=== PATIENT | female | born 1980 | race Caucasian/White ===

== ENCOUNTER 2018-04-26 18:53 | Emergency (ER) | payer OTHER ==
[~2018-04-26] VITALS: Ht 149.9 cm; Wt 74.4 kg
[2018-04-26 19:08] VITALS: BP 115/70
--- NOTE | 2018-04-26 19:16 | NUR ---
PATIENT AMBULATED TO BED 6. REPORT GIVEN TO KAYLEN RICHARDS.
--- NOTE | 2018-04-26 19:20 | NUR ---
PT C/O RT FLANK PAIN AND RT LOWER LEG PAIN X3 DAYS. PT DENIES TRAUMA TO AREA. NO BRUISING OR REDNESS NOTED. PT STATES HER URINE WAS "CLOUDY" THIS AM AND THAT THERE IS NO PAIN ON URINATION BUT IT "FEELS WEIRD". PMH HIGH CHOLESTEROL, DM
--- NOTE | 2018-04-26 21:16 | NUR ---
Dr. Shepherd evaluating patient at bedside.
--- NOTE | 2018-04-26 21:27 | NUR ---
PENDING D/C PAPERWORK FROM DR OSORIO.
--- NOTE | 2018-04-26 21:40 | NUR ---
Patient discharged with v/s stable. Written and verbal after care instructions given and explained. Patient alert, oriented and verbalized understanding of instructions. Ambulatory with steady gait. All questions addressed prior to discharge. ID band removed. Patient advised to follow up with PMD. Rx of IBU given. Patient educated on indication of medication including possible reaction and side effects. Opportunity to ask questions provided and answered.
[2018-04-26 21:41] VITALS: BP 111/65
== END 2018-04-26 21:40 | disposition home or self-care (01) ==
LOC: MED 18:53
DX: M79.661 Pain in right lower leg (principal); M54.5 Low back pain; E11.9 Type 2 diabetes mellitus without complications
CPT/HCPCS: 81002; 81025; 99282

== ENCOUNTER 2024-04-14 23:17 | Emergency (ER) | payer OTHER ==
[~2024-04-14] VITALS: Ht 149.9 cm; Wt 68.0 kg
[2024-04-14 23:21] VITALS: BP 131/76; PULSE 80; RESP 16; TEMP 98; O2SAT 97
[2024-04-15 00:10] LABS: BASOPHILS # (AUTO) 0.1 K/uL (0.00-0.22); BASOPHILS % (AUTO) 0.9 % (0.0-2.0); EOSINOPHILS # (AUTO) 0.3 K/uL (0-0.4); EOSINOPHILS % (AUTO) 3.2 % (0.0-4.0); HEMOGLOBIN 13.7 g/dL (12.0-16.0); LYMPHOCYTES # (AUTO) 3.2 K/uL (2.5-16.5); LYMPHOCYTES % (AUTO) 38.1 % (20.5-51.1); MEAN CORPUSCULAR HEMOGLOBIN 29 pg (27-31); MEAN CORPUSCULAR HGB CONC 34 g/dL (33-37); MEAN CORPUSCULAR VOLUME 85.5 fL (80-94); MONOCYTES # (AUTO) 0.6 K/uL (0.8-1.0); MONOCYTES % (AUTO) 7.2 % (1.7-9.3); NEUTROPHILS # (AUTO) 4.2 K/uL (1.8-7.7); NEUTROPHILS % (AUTO) 50.6 % (42.2-75.2); PLATELET COUNT (AUTO) 318 K/uL (140-450); RED BLOOD CELL COUNT(AUTO) 4.67 MIL/uL (4.20-5.40); RED CELL DISTRIBUTION WIDTH 13.2 % (11.6-13.7); WHITE BLOOD COUNT (AUTO) 8.3 K/uL (4.8-10.8)
== END 2024-04-15 02:08 | disposition home or self-care (01) ==
LOC: MED 23:17
DX: N93.9 Abnormal uterine and vaginal bleeding, unspecified (principal); D25.9 Leiomyoma of uterus, unspecified; N83.202 Unspecified ovarian cyst, left side; E11.9 Type 2 diabetes mellitus without complications; Z98.890 Other specified postprocedural states
CPT/HCPCS: 36415; 76830; 81025; 85025; 93976; 99284; Q0092

== ENCOUNTER 2024-05-28 11:02 | Emergency (ER) | payer OTHER ==
[~2024-05-28] VITALS: Ht 149.9 cm; Wt 68.2 kg
[2024-05-28 11:23] VITALS: BP 152/110; PULSE 88; RESP 17; TEMP 97.7; O2SAT 98
[2024-05-28 12:05] LABS: APPEARANCE,URINE CLEAR (CLEAR); BILIRUBIN,URINE NEGATIVE (NEGATIVE); BLOOD, URINE 2+ (NEGATIVE); LEUKOCYTE ESTERASE ,URINE NEGATIVE (NEGATIVE); NITRITE, URINE NEGATIVE (NEGATIVE); PROTEIN,URINE 2+ (NEGATIVE); UGLUCOSE TRACE (NEGATIVE); UROBILINOGEN,URINE 0.2 EU/dL (0.2 - 1)
[2024-05-28 12:16] LABS: COLOR,URINE STRAW (YELLOW)
[2024-05-28 12:19] LABS: RBC,URINE 11-20 (MOD) /HPF (0-5); WBC,URINE 0-5 /HPF (0-5)
[2024-05-28 12:22] LABS: BACTERIA,URINE 1+ /HPF (None Seen)
[2024-05-28 12:35] LABS: BASOPHILS # (AUTO) 0.1 K/uL (0.00-0.22); BASOPHILS % (AUTO) 0.5 % (0.0-2.0); EOSINOPHILS # (AUTO) 0.1 K/uL (0-0.4); EOSINOPHILS % (AUTO) 0.4 % (0.0-4.0); HEMATOCRIT 43.2 % (36-48); HEMOGLOBIN 14.7 g/dL (12.0-16.0); LYMPHOCYTES # (AUTO) 1.7 K/uL (2.5-16.5); LYMPHOCYTES % (AUTO) 9.1 % (20.5-51.1); MEAN CORPUSCULAR HEMOGLOBIN 29 pg (27-31); MEAN CORPUSCULAR HGB CONC 34 g/dL (33-37); MEAN CORPUSCULAR VOLUME 84.4 fL (80-94); MONOCYTES # (AUTO) 1.1 K/uL (0.8-1.0); MONOCYTES % (AUTO) 5.8 % (1.7-9.3); NEUTROPHILS # (AUTO) 15.9 K/uL (1.8-7.7); NEUTROPHILS % (AUTO) 84.2 % (42.2-75.2); PLATELET COUNT (AUTO) 398 K/uL (140-450); RED BLOOD CELL COUNT(AUTO) 5.12 MIL/uL (4.20-5.40); WHITE BLOOD COUNT (AUTO) 18.9 K/uL (4.8-10.8)
[2024-05-28] MEDS: ONDANSETRON 4 MG/2 ML VIAL IVP ONE (12:37)
[2024-05-28] MEDS: NACL 0.9% 1,000 ML IV SCH (12:37)
[2024-05-28] MEDS: MORPHINE SULFATE 4 MG/ML SYR IVP ONE (12:38)
[2024-05-28 12:50] LABS: ANION GAP 10.9 (8-16); CALCIUM 9.6 mg/dL (8.5-10.1); CARBON DIOXIDE 30.8 mmol/L (21-32); CREATININE 0.8 mg/dL (0.6-1.3); POTASSIUM 3.7 mmol/L (3.5-5.1)
[2024-05-28 12:57] LABS: ALBUMIN 3.9 g/dL (3.4-5.0); BILIRUBIN,DIRECT 0.2 mg/dL (0.0-0.3); TOTAL BILIRUBIN 0.6 mg/dL (0.0-1.0); TOTAL PROTEIN, SERUM 8.4 g/dL (6.4-8.2)
[2024-05-28] MEDS ORDERED: ONDA8TAB87 PO (14:04)
[2024-05-28] MEDS ORDERED: ACET-8905 PO (14:04)
[2024-05-28] MEDS ORDERED: MAGN296S70 PO (14:04)
[2024-05-28] MEDS ORDERED: MIRABULK PO (14:04)
[2024-05-28 14:25] VITALS: BP 157/83; PULSE 71; RESP 18; TEMP 97.7; O2SAT 98
== END 2024-05-28 14:20 | disposition home or self-care (01) ==
LOC: MED 11:02
DX: R10.13 Epigastric pain (principal); R11.2 Nausea with vomiting, unspecified; K59.00 Constipation, unspecified; E11.9 Type 2 diabetes mellitus without complications; Z98.890 Other specified postprocedural states
CPT/HCPCS: 36415; 76705; 80048; 80076; 81001; 81025; 82948; 83690; 85025; 96361; 96374; 96375; 99285; J2270; J2405; J7030; Q0092